=== PATIENT | female | born 1945 | race Caucasian/White ===

== ENCOUNTER 2021-05-22 13:07 | Outpatient (CLI) | payer MEDICARE, OTHER ==
[2021-05-22] MEDS ORDERED: turmeric PO (14:04)
[2021-05-22] MEDS ORDERED: BIFI4CAP PO (14:04)
[2021-05-22] MEDS ORDERED: [UNRECOGNIZED DRUG - OTHER] PO (14:04)
[2021-05-22] MEDS ORDERED: FLUO10TA PO (14:04)
[2021-05-22] MEDS ORDERED: COENZYME Q10 PO (14:04)
[2021-05-22] MEDS ORDERED: [UNRECOGNIZED DRUG - OTHER] PO (14:04)
[2021-05-22] MEDS ORDERED: VITAMIN C ZINC PO (14:04)
[2021-05-22] MEDS ORDERED: [UNRECOGNIZED DRUG - OTHER] PO (14:04)
[2021-05-22] MEDS ORDERED: ALBU18HF INH (14:04)
[2021-05-22] MEDS ORDERED: FERR325T18 PO (14:04)
[2021-05-22] MEDS ORDERED: LORA-856 PO (14:04)
[2021-05-22] MEDS ORDERED: BIOT10TA PO (14:04)
[2021-05-22] MEDS ORDERED: [UNRECOGNIZED DRUG - OTHER] PO (14:04)
[2021-05-22] MEDS ORDERED: CHOL10003 PO (14:04)
[2021-05-22] MEDS ORDERED: CALC-534 PO (14:04)
[2021-05-22] MEDS ORDERED: PANT40TA6 PO (14:04)
[2021-05-22] MEDS ORDERED: LEVO100T PO (14:04)
[2021-05-22] MEDS ORDERED: CIDE600C PO (14:04)
[2021-05-22] MEDS ORDERED: FLUT12HF3 IH (14:04)
[2021-05-22] MEDS ORDERED: LOSA25TA25 PO (14:04)
[2021-05-22] MEDS ORDERED: FISH1CAP PO (14:04)
[2021-05-22] MEDS ORDERED: MONT10TA6 PO (14:04)
[2021-05-22] MEDS ORDERED: TIOT18CA INH (14:04)
[2021-05-22] MEDS ORDERED: ASHW300C PO (14:04)
[2021-05-22] MEDS ORDERED: SIMV40TA20 PO (14:04)
[2021-05-22 14:29] LABS: ALANINE AMINOTRANSFERASE 33 U/L (12-78); ALBUMIN 3.5 g/dL (3.4-5.0); ANION GAP 4 mmol/L (5-15); CALCIUM 8.8 mg/dL (8.5-10.1); CHLORIDE 106 mmol/L (98-107); CREATININE 0.85 mg/dL (0.55-1.02)
[2021-05-22 14:31] LABS: ALKALINE PHOSPHATASE 89 U/L (45-117); BILIRUBIN,TOTAL 0.4 mg/dL (0.2-1.0); TOTAL PROTEIN 6.9 g/dL (6.4-8.2)
== END 2021-05-22 23:59 | disposition home or self-care (01) ==
LOC: STAR 13:07
PROVIDERS: ATTEND Orthopaedic Surgery
DX: Z01.818 Encounter for other preprocedural examination (principal); M17.12 Unilateral primary osteoarthritis, left knee
CPT/HCPCS: 36415; 80053; 87081

== ENCOUNTER 2021-06-03 06:37 | Day surgery (SDC) | payer MEDICARE, OTHER ==
[~2021-06-03] VITALS: Ht 167.6 cm; Wt 90.2 kg
[~2021-06-03 06:37] MED LIST: ALBU18HF INH; ASHW300C PO; BIFI4CAP PO; BIOT10TA PO; CALC-534 PO; CHOL10003 PO; CIDE600C PO; COENZYME Q10 PO; EPINEPHRINE 1 MG/ML, 1ML ONE; FERR325T18 PO; FISH1CAP PO; FLUO10TA PO; FLUT12HF3 IH; KETOROLAC 60 MG/2 ML ONE; LEVO100T PO; LORA-856 PO; LOSA25TA25 PO; MONT10TA6 PO; PANT40TA6 PO; ROPIvacaine/PF 0.2%, 20 ML ONE; SIMV40TA20 PO; SODIUM CHLORIDE 0.9% 50 ML ONE; TIOT18CA INH; TRANEXAMIC ACID 100 MG/ML, 10ML ONE; VANCOMYCIN 1,000 MG ONE; VITAMIN C ZINC PO; [UNRECOGNIZED DRUG - OTHER] PO; [UNRECOGNIZED DRUG - OTHER] PO; [UNRECOGNIZED DRUG - OTHER] PO; [UNRECOGNIZED DRUG - OTHER] PO; turmeric PO
[2021-06-03] MEDS ORDERED: HYDROmorphone 1 MG/ML, 1ML INJ IVPush PRN ×2 (07:00→08:00)
[2021-06-03] MEDS ORDERED: DIPHENHYDRAMINE 50 MG CAPSULE PO PRN (07:00)
[2021-06-03] MEDS ORDERED: MAGNESIUM HYDROXIDE 8%, 30ML UDC PO PRN (07:00)
[2021-06-03] MEDS ORDERED: ALUMINUM/MAG/SIMETHICONE 30 ML UDC PO PRN (07:00)
[2021-06-03] MEDS ORDERED: CHLORHEXIDINE 15 ML UDC PO ONE (07:00)
[2021-06-03] MEDS ORDERED: SENNA/DOCUSATE TABLET PO PRN (07:00)
[2021-06-03] MEDS ORDERED: POLYETHYLENE GLYCOL 17 GM PACKET PO PRN (07:00)
[2021-06-03] MEDS ORDERED: PSYLLIUM PACKET PO PRN (07:00)
[2021-06-03] MEDS ORDERED: POTASSIUM CHLORIDE 20 MEQ in D5%-0.45% NACL 1,000 ML IV SCH (07:00)
[2021-06-03] MEDS ORDERED: LACTATED RINGERS 1,000 ML IV SCH (07:00)
[2021-06-03] MEDS ORDERED: DIPHENHYDRAMINE 50 MG/ML, 1ML IVPush PRN (07:00)
[2021-06-03] MEDS ORDERED: OXYcodone IR 5MG TABLET PO PRN (07:00)
[2021-06-03] MEDS ORDERED: ONDANSETRON 4 MG TABLET PO PRN (07:00)
[2021-06-03] MEDS ORDERED: KETOROLAC 30 MG/1 ML IV SCH (07:00)
[2021-06-03] MEDS ORDERED: ONDANSETRON 2MG/ML, 2ML IVPush PRN (07:00)
[2021-06-03] MEDS ORDERED: METOCLOPRAMIDE 5 MG/ML, 2ML IVPush PRN (07:00)
[2021-06-03] MEDS ORDERED: PROMETHAZINE 25 MG/ML, 1ML IM PRN (07:00)
[2021-06-03 07:01] VITALS: BP 156/93
[2021-06-03] MEDS ORDERED: CHLORHEXIDINE 15 ML UDC ONE (07:04)
[2021-06-03] MEDS ORDERED: FENTANYL PF 250 MCG/5ML ONE (07:26)
[2021-06-03] MEDS ORDERED: BUPIVACAINE/PF 0.25% ONE (07:29)
[2021-06-03] MEDS ORDERED: CEFAZOLIN 1,000 MG ONE (07:29)
[2021-06-03] MEDS ORDERED: ROCURONIUM 10MG/ML,5ML ONE (07:29)
[2021-06-03] MEDS ORDERED: GLYCOPYRROLATE 0.2MG/1ML, 5ML ONE (07:29)
[2021-06-03] MEDS ORDERED: NEOSTIGMINE 1 MG/ML, 10ML ONE (07:29)
[2021-06-03] MEDS ORDERED: PROPOFOL 10 MG/ML, 20ML ONE (07:29)
[2021-06-03] MEDS ORDERED: DEXAMETHASONE 4 MG/ML, 1ML ONE (07:29)
[2021-06-03] MEDS ORDERED: ONDANSETRON 2MG/ML, 2ML ONE (07:29)
[2021-06-03] MEDS ORDERED: ACETAMINOPHEN 500 MG TABLET PO ONE (07:30)
[2021-06-03] MEDS ORDERED: GABAPENTIN 300 MG CAPSULE PO ONE (07:30)
[2021-06-03] MEDS ORDERED: GABAPENTIN 300 MG CAPSULE ONE (07:33)
[2021-06-03] MEDS ORDERED: ACETAMINOPHEN 500 MG TABLET ONE (07:33)
[2021-06-03] MEDS ORDERED: MEPERIDINE/PF 25MG/0.5ML IVPush PRN (08:00)
[2021-06-03] MEDS ORDERED: HALOPERIDOL 5 MG/ML IV PRN (08:00)
[2021-06-03] MEDS ORDERED: OXYcodone 5 MG/5 ML ORAL.SOL UDC PO PRN (08:00)
[2021-06-03] MEDS ORDERED: hydrALAzine 20 MG/ML, 1ML IV PRN (08:00)
[2021-06-03] MEDS ORDERED: FENTANYL PF 100 MCG/2ML IV PRN (08:00)
[2021-06-03] MEDS ORDERED: LABETALOL 5MG/ML, 20ML IV PRN (08:00)
[2021-06-03] MEDS ORDERED: PROMETHAZINE 25 MG/ML, 1ML IVPush PRN (08:00)
[2021-06-03] MEDS ORDERED: morphine SULFATE 10 MG/ML, 1ML IVPush PRN (08:00)
[2021-06-03] MEDS ORDERED: FENTANYL PF 100 MCG/2ML ONE ×2 (08:40→09:11)
[2021-06-03] MEDS ORDERED: DOCUSATE 100 MG CAPSULE PO SCH (09:00)
[2021-06-03] MEDS ORDERED: TAMSULOSIN 0.4 MG CAP.ER.24H PO SCH (09:00)
[2021-06-03] MEDS ORDERED: KETOROLAC 30 MG/1 ML ONE (09:51)
[2021-06-03] MEDS ORDERED: CEFAZOLIN PMX 1GM/50ML 50 ML IVPB SCH (19:05)
[2021-06-03] MEDS ORDERED: ASPIRIN 81 MG TABLET EC PO SCH (19:08)
[2021-06-04] MEDS ORDERED: DEXAMETHASONE 4 MG/ML, 1ML IVPush ONE (06:00)
== END 2021-06-03 13:10 | disposition home or self-care (01) ==
LOC: OUT 06:37 → UNDOADMOB 06:42 → ORIP 06:42
PROVIDERS: ATTEND Orthopaedic Surgery
DX: M17.32 Unilateral post-traumatic osteoarthritis, left knee (principal); S82.392S Other fracture of lower end of left tibia, sequela; M81.8 Other osteoporosis without current pathological fracture; M25.762 Osteophyte, left knee; I10 Essential (primary) hypertension; J44.9 Chronic obstructive pulmonary disease, unspecified; G47.33 Obstructive sleep apnea (adult) (pediatric); E03.9 Hypothyroidism, unspecified; E78.5 Hyperlipidemia, unspecified; K21.9 Gastro-esophageal reflux disease without esophagitis; Z79.82 Long term (current) use of aspirin; Z79.890 Hormone replacement therapy; Z79.891 Long term (current) use of opiate analgesic; Z79.899 Other long term (current) drug therapy; Z98.890 Other specified postprocedural states; X58.XXXS Exposure to other specified factors, sequela
CPT/HCPCS: 27447; 64447; 73560; 97163; C1713; C1776; J0171; J0690; J1100; J1885; J2405; J2704; J2710; J2795; J3010; J3370; J7120